=== PATIENT | female | born 1940 | race Caucasian/White ===

== ENCOUNTER 2017-06-24 07:59 | Day surgery (SDC) | payer OTHER ==
[~2017-06-24 07:59] MED LIST: PROPOFOL 200 MG INJ
[2017-06-24] MEDS ORDERED: SODIUM BICARBONATE (IV ADD) 50 ML (09:07)
[2017-06-24] MEDS ORDERED: EPINEPHrine 1 MG INJ (09:07)
[2017-06-24] MEDS ORDERED: TIMOLOL 0.5% 5 ML OPH (09:07)
[2017-06-24] MEDS ORDERED: LIDOCAINE 1% (MPF) 10 ML INJ (09:07)
[2017-06-24] MEDS ORDERED: BUPIVACAINE 0.75% (MPF) 10 ML INJ (09:08)
[2017-06-24] MEDS ORDERED: LIDOCAINE 2% (SDV) 5 ML INJ (09:09)
[2017-06-24] MEDS: MOXIFLOXACIN 0.5% 3 ML OPH OPER (09:25)
[2017-06-24] MEDS: NEPAFENAC 0.1% 3 ML OPH OPER (09:25)
[2017-06-24] MEDS: CYCLOPENTOLATE 2% 2 ML OPH OPER (09:25)
[2017-06-24] MEDS: PHENYLephrine 10% 5 ML OPH OPER (09:26)
[2017-06-24] MEDS: LIDOCAINE 1% (MPF) 10 ML INJ INJ (10:00)
[2017-06-24] MEDS: hydrALAzine 20 MG INJ IV (10:13)
[2017-06-24] MEDS ORDERED: FENTAnyl 50 MCG/ML VIAL (10:43)
[2017-06-24] MEDS ORDERED: MIDAZOLAM 1 MG/ML 2 ML INJ (10:44)
[2017-06-24] MEDS: TIMOLOL 0.5% 5 ML OPH RIGHT EYE (10:59)
[2017-06-24] MEDS ORDERED: ONDANSETRON 4 MG INJ IV (11:30)
[2017-06-24] MEDS ORDERED: HYDROmorphONE (0.2 MG/ML) 10ML SYG IV (11:30)
[2017-06-24] MEDS ORDERED: FENTAnyl 50 MCG/ML VIAL IV ×2 (11:30)
[2017-06-24] MEDS ORDERED: LABETALOL HCL 20MG INJ IV (11:30)
[2017-06-24] MEDS ORDERED: hydrALAzine 20 MG INJ IV (11:30)
[2017-06-24] MEDS ORDERED: METOCLOPRAMIDE 10 MG INJ IV (11:30)
== END 2017-06-24 13:20 | disposition home or self-care (01) ==
LOC: SDS 07:59
DX: H25.011 Cortical age-related cataract, right eye (principal); I25.10 Atherosclerotic heart disease of native coronary artery without angina pectoris; I11.9 Hypertensive heart disease without heart failure; I10 Essential (primary) hypertension; Z86.73 Personal history of transient ischemic attack (TIA), and cerebral infarction without residual deficits; I25.2 Old myocardial infarction; J45.909 Unspecified asthma, uncomplicated; J44.9 Chronic obstructive pulmonary disease, unspecified
CPT/HCPCS: 66984; 82962